=== PATIENT | male | born 1950 | race Caucasian/White ===

== ENCOUNTER → 2021-04-07 12:20 | Outpatient (CLI) | payer MEDICARE, SELFPAY ==
--- NOTE | 2021-04-07 14:11 | NEURO ---
NCS and/or EMG Patient Report Ordering Doctor: Boo El DATE OF SERVICE: 04/07/21 Indication: Bilateral hand pain, numbness and tingling. Evaluate for median neuropathy at the wrist. Findings: Nerve conduction studies were performed in the right and left upper extremities. The right median motor study recording the abductor pollicis brevis showed a reduced amplitude, markedly prolonged distal latency and slowed conduction velocity. The right ulnar motor study recording the abductor digiti minimi showed a normal amplitude, normal distal latency and normal conduction velocity. No conduction block or focal slowing was present across the elbow. The right median sensory response recording digit two was absent. The right ulnar sensory response recording digit five showed a normal amplitude, latency and conduction velocity. The right radial sensory response recording over the extensor snuff box showed a normal amplitude, latency and conduction velocity. The left median motor study recording the abductor pollicis brevis showed a normal amplitude, markedly prolonged distal latency and slowed conduction velocity. The left ulnar motor study recording the abductor digiti minimi showed a normal amplitude, normal distal latency and normal conduction velocity. No conduction block or focal slowing was present across the elbow. The left median sensory response recording digit two was absent. The left ulnar sensory response recording digit five showed a normal amplitude, latency and conduction velocity. The left radial sensory response recording over the extensor snuff box showed a normal amplitude, latency and conduction velocity. Additional internal comparison studies could not be completed due to the absent median to lumbrical response. Needle EMG of the right upper extremity and cervical paraspinal muscles was performed. No denervation was seen in any muscle. In the abductor pollicis brevis, motor units were large amplitude, long duration with reduced recruitment. All other motor unit morphology, activation and recruitment patterns were normal in the right upper extremity. Needle EMG of the left abductor pollicis brevis muscle was performed. Active denervation was present. Motor units were large amplitude, long duration with reduced recruitment. Impression: This is an abnormal study. 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 The pathology is demyelinating though there is active secondary axonal loss of the thenar muscles. These findings are compatible with the clinical diagnosis of carpal tunnel syndrome. In addition, there is no electrophysiologic evidence of a superimposed cervical radiculopathy in the right upper extremity. Christopher Luis, D.O. [employer] Neurology Neurology Interp Codes: 07790-28 Musc tst done w/nerv tst jensen (interp) (59), 74097-43 Musc test done w/n test comp (interp) and 79534-06 Nrv cndj test 11-12 studies (interp)
== END ==
PROVIDERS: PCP Internal Medicine; Referring Provider Orthopaedic Surgery; Visit Provider Orthopaedic Surgery
DX: R20.0 Anesthesia of skin (principal); G56.03 Carpal tunnel syndrome, bilateral upper limbs; G56.23 Lesion of ulnar nerve, bilateral upper limbs
CPT/HCPCS: 95885; 95886; 95912